=== PATIENT | female | born 1960 | race Caucasian/White ===

== ENCOUNTER 2016-10-26 04:54 | Emergency (ER) | payer OTHER ==
[~2016-10-26] VITALS: Ht 165.1 cm; Wt 73.5 kg
[~2016-10-26 04:54] MED LIST: ALPR0.25 PO; AMLO2.5T PO; CITA40TA12 PO; CRESTOR40 MG PO; DIPH25CA58 PO; ESTR0.62 PO; NADO40TA PO; RANI150T6 PO; SUMA50TA3 PO; ZOLP10TA4 PO
[2016-10-26 05:15] VITALS: BP 144/90
--- NOTE | 2016-10-26 05:19 | PHYS DOC ---
Past Medical History Past Medical History: Anxiety, Depression, GERD, High Cholesterol, Hypertension , Migraines, Other Additional Past Medical Histor: GI stricture Past Surgical History: Hysterectomy, Tubal ligation, Other Additional Past Surgical Histo: abd plasty, plastic- finger, skin graft Alcohol Use: Occasionally Drug Use: None Adult General Chief Complaint Chief Complaint: LOWEREXTREMITY INJURY HPI HPI Patient is a 56 year old female who presents to the ER today requesting a tetanus shot. Patient has an abrasion to her right upper thigh that occurred at her home. Patient has no other complaints. Patient's physical exam is consistent with a 6 cm superficial abrasion with surrounding bruising to her right upper outer thigh. There is no evidence of any cellulitis or infection. Assessment and plan 56-year-old female with a superficial abrasion to her right lower 70. Patient's tetanus is not up-to-date. Patient will be given at the [facility] be discharged. There is no evidence of cellulitis or infection. Patient has no further concerns Review of Systems Review of Systems Constitutional: Denies fever or chills [] Allergies Allergies Allergies Coded Allergies Type Severity Reaction Last Updated Verified cephalexin Allergy Intermediate blisters 01/18/14 Yes Physical Exam Physical Exam Constitutional: Well developed, well nourished, no acute distress, non-toxic appearance. [] HENT: Normocephalic, atraumatic, Skin: Warm, dry, no erythema, no rash. [] Extremities: Superficial abrasion with surrounding ecchymosis to her right upper outer thigh. EKG EKG [] Radiology/Procedures Radiology/Procedures [] Course & Med Decision Making Course & Med Decision Making Pertinent Labs and Imaging studies reviewed. (See chart for details) [] Dragon Disclaimer Dragon Disclaimer This electronic medical record was generated, in whole or in part, using a voice recognition dictation system. Departure Departure Impression: Primary Impression: Abrasion of leg, right Disposition: HOME, SELF-CARE Condition: STABLE Referrals: LORIE FRASER MD (PCP) Patient Instructions: Abrasion, Uzly-ow-Ywku, VIS, Tetanus, Diphtheria (Td); Tetanus, Diphtheria, Pertussis (Tdap) - [facility] [place] Problem Qualifiers Primary Impression: Abrasion of leg, right Encounter type: initial encounter Qualified Codes: S80.811A - Abrasion, right lower leg, initial encounter MINESH AGUILAR MD October 26, 2016 05:19
[2016-10-26] MEDS ORDERED: DIPHTH,PERTUSS(ACELL),TET TOX 0.5 ML DISP.SYRIN. VAX IM ONE (06:00)
== END 2016-10-26 05:40 | disposition home or self-care (01) ==
LOC: ER 04:54
DX: S80.811A Abrasion, right lower leg, initial encounter (principal); S70.311A Abrasion, right thigh, initial encounter; E78.00 Pure hypercholesterolemia, unspecified; K21.9 Gastro-esophageal reflux disease without esophagitis; I10 Essential (primary) hypertension; G43.909 Migraine, unspecified, not intractable, without status migrainosus; Z90.710 Acquired absence of both cervix and uterus; Z98.51 Tubal ligation status; Z98.890 Other specified postprocedural states; Z88.1 Allergy status to other antibiotic agents; X58.XXXA Exposure to other specified factors, initial encounter; Y93.89 Activity, other specified; Y99.8 Other external cause status; Y92.89 Other specified places as the place of occurrence of the external cause
CPT/HCPCS: 90471; 90715; 99283-25

== ENCOUNTER 2017-10-04 12:38 | Emergency (ER) | payer OTHER ==
[2017-10-04] MEDS ORDERED: ONDANSETRON PF 4 MG/2 ML VIAL. (13:30)
[2017-10-04] MEDS: IV NORMAL SALINE 1000ML BAG 1,000 ML IV (13:43)
[2017-10-04] MEDS: ONDANSETRON PF 4 MG/2 ML VIAL. IV (13:43)
[2017-10-04] MEDS: LOPERAMIDE 2 MG CAPSULE PO (13:45)
[2017-10-04 13:49] LABS: BASO # 0.1 x10^3/uL (0.0-0.2); BASO % 1 % (0-3); EOS % 0 % (0-3); HEMATOCRIT 43.2 % (36.0-47.0); HEMOGLOBIN 14.9 g/dL (12.0-15.5); LYMPH # 1.6 x10^3/uL (1.0-4.8); LYMPH % 10 % (24-48); MEAN CORPUSCULAR HEMOGLOBIN 31 pg (25-35); MEAN CORPUSCULAR HGB CONC 35 g/dL (31-37); MEAN CORPUSCULAR VOLUME 89 fL (79-100); MONO # 0.8 x10^3/uL (0.0-1.1); MONO % 5 % (0-9); NEUT % 85 % (31-73); PLATELET COUNT 330 x10^3/uL (140-400); RED BLOOD COUNT 4.85 x10^6/uL (3.50-5.40); RED CELL DISTRIBUTION WIDTH 12.6 % (11.5-14.5); WHITE BLOOD COUNT 16.5 x10^3/uL (4.0-11.0)
[2017-10-04 13:55] LABS: ADD MAN DIFF? YES
[2017-10-04 13:59] LABS: ANION GAP 12 (6-14); BLOOD UREA NITROGEN 15 mg/dL (7-20); BUN/CREATININE RATIO 19 (6-20); CALCIUM 8.9 mg/dL (8.5-10.1); CARBON DIOXIDE 24 mmol/L (21-32); CHLORIDE 103 mmol/L (98-107); CREATININE 0.8 mg/dL (0.6-1.0); GFR 73.9; GLUCOSE 148 mg/dL (70-99); POTASSIUM 3.6 mmol/L (3.5-5.1); SODIUM 139 mmol/L (136-145)
[2017-10-04 14:04] LABS: ALBUMIN 3.8 g/dL (3.4-5.0); ALBUMIN/GLOBULIN RATIO 0.8 (1.0-1.7); ALK PHOS 97 U/L (46-116); ALT (SGPT) 26 U/L (14-59); AST (SGOT) 20 U/L (15-37); TOTAL BILIRUBIN 0.6 mg/dL (0.2-1.0); TOTAL PROTEIN 8.5 g/dL (6.4-8.2)
[2017-10-04] MEDS: ACETAMINOPHEN 500 MG TABLET PO (14:31)
[2017-10-04 14:53] LABS: % LYMPHS 9 % (24-48); % MONOS 5 % (0-10); % SEGS 86 % (35-66)
[2017-10-04 14:55] LABS: PLT ESTIMATE ADEQUATE (ADEQUATE)
== END 2017-10-04 15:03 | disposition home or self-care (01) ==
LOC: ER 12:38
DX: K52.9 Noninfective gastroenteritis and colitis, unspecified (principal); E86.0 Dehydration; K21.9 Gastro-esophageal reflux disease without esophagitis; E78.00 Pure hypercholesterolemia, unspecified; I10 Essential (primary) hypertension; G43.909 Migraine, unspecified, not intractable, without status migrainosus; Z90.710 Acquired absence of both cervix and uterus; Z98.51 Tubal ligation status; Z88.1 Allergy status to other antibiotic agents; Z88.7 Allergy status to serum and vaccine
CPT/HCPCS: 36415; 80053; 85007; 85025; 93005; 96361; 96374; 99285-25; J2405; J7030

== ENCOUNTER 2018-06-15 03:18 | Observation (INO) | payer OTHER ==
[~2018-06-15] VITALS: Ht 162.6 cm; Wt 73.9 kg
[~2018-06-15 03:18] MED LIST changes: -AMLO2.5T PO; +AMLO2.5T3 PO; +CLON0.5T11 PO; +ESCITALOPRAM OX20 MG PO; +LOPE2TAB27 PO; +OMEP20CA9 PO; +ONDA4TAB10 SL; +RANI150T21 PO; -RANI150T6 PO
[2018-06-15 03:52] LABS: BASO # 0.1 x10^3/uL (0.0-0.2); BASO % 1 % (0-3); EOS # 0.2 x10^3/uL (0.0-0.7); EOS % 2 % (0-3); HEMATOCRIT 40.2 % (36.0-47.0); HEMOGLOBIN 13.9 g/dL (12.0-15.5); LYMPH # 3.2 x10^3/uL (1.0-4.8); LYMPH % 40 % (24-48); MEAN CORPUSCULAR HEMOGLOBIN 31 pg (25-35); MEAN CORPUSCULAR HGB CONC 35 g/dL (31-37); MEAN CORPUSCULAR VOLUME 90 fL (79-100); MONO # 0.5 x10^3/uL (0.0-1.1); MONO % 7 % (0-9); NEUT # 4.1 x10^3uL (1.8-7.7); NEUT % 51 % (31-73); PLATELET COUNT 329 x10^3/uL (140-400); RED BLOOD COUNT 4.47 x10^6/uL (3.50-5.40)
[2018-06-15 03:58] LABS: CALCIUM 9.1 mg/dL (8.5-10.1); CREATININE 0.7 mg/dL (0.6-1.0); GFR 86.2; POTASSIUM 4.2 mmol/L (3.5-5.1)
[2018-06-15] MEDS ORDERED: NITROGLYCERIN SUBLINGUAL 0.4 MG BOTTLE OF 25. SL PRN (04:00)
[2018-06-15 04:04] LABS: ALBUMIN 3.7 g/dL (3.4-5.0); ALBUMIN/GLOBULIN RATIO 0.9 (1.0-1.7); TOTAL BILIRUBIN 0.3 mg/dL (0.2-1.0); TOTAL PROTEIN 7.9 g/dL (6.4-8.2)
--- NOTE | 2018-06-15 04:11 | RAD ---
Chest AP portable at 0320: Reason for examination: Chest pain. Comparison is made to previous study dated 11/07/2015. The heart size is normal. Mediastinum is unremarkable. Lung daniel are clear. No acute bony abnormalities are seen. Impression: No acute cardiopulmonary disease. Electronically signed by: Pau Merida MD (06/15/2018 4:07 AM) [facility]
[2018-06-15] MEDS ORDERED: ASPIRIN CHEWABLE 81 MG TABLET. PO ONE (04:15)
--- NOTE | 2018-06-15 04:28 | PHYS DOC ---
Past Medical History Past Medical History: Anxiety, Depression, GERD, High Cholesterol, Hypertension , Migraines, Other Additional Past Medical Histor: GI stricture Past Surgical History: Hysterectomy, Tubal ligation, Other Additional Past Surgical Histo: abd plasty, finger, skin graft Alcohol Use: Occasionally Drug Use: None Adult General Chief Complaint Chief Complaint: CHEST PAIN HPI HPI Patient is a 57 year old f with cc of chest pain. prssure left side radiates to the left arm a/w sob. Had the pain at approximately 11 AM last morning while she was trying to go to sleep after mine shifter she went to sleep okay last couple of minutes she woke up she had a hard with her it was again chest pressure radiating to the arm she left the house she denies domestic violence she went to [facility] and was still feeling intermittent discomfort while walking. has hx of htn hld, family hx cad. last stress test 5 years ago Review of Systems Review of Systems Constitutional: Denies fever or chills [] Eyes: Denies change in visual acuity, redness, or eye pain [] HENT: Denies nasal congestion or sore throat [] Respiratory: Denies cough or shortness of breath [] Cardiovascular: No additional information not addressed in HPI [] GI: Denies abdominal pain, nausea, vomiting, bloody stools or diarrhea [] : Denies dysuria or hematuria [] Musculoskeletal: Denies back pain or joint pain [] Integument: Denies rash or skin lesions [] Neurologic: Denies headache, focal weakness or sensory changes [] Endocrine: Denies polyuria or polydipsia [] All other systems were reviewed and found to be within normal limits, except as documented in this note. Current Medications Current Medications Current Medications Medications (Trade) Dose Ordered Sig/[facility] Start Time Stop Time Status Last Admin Dose Admin Aspirin (Children'S Aspirin) 324 mg 1X ONCE 06/15/18 04:15 06/15/18 04:16 DC Nitroglycerin (Nitrostat) 0.4 mg PRN Q5MIN PRN 06/15/18 04:00 06/16/18 03:59 Allergies Allergies Allergies Coded Allergies Type Severity Reaction Last Updated Verified sumatriptan Allergy Severe chest pain 10/04/17 Yes tetanus and diphtheria toxoids Allergy Severe fever,cellulitis 10/04/17 Yes cephalexin Allergy Intermediate blisters 01/18/14 Yes Physical Exam Physical Exam Constitutional: Well developed, well nourished, no acute distress, non-toxic appearance. [] HENT: Normocephalic, atraumatic, bilateral external ears normal, oropharynx moist, no oral exudates, nose normal. [] Eyes: PERRLA, EOMI, conjunctiva normal, no discharge. [] Neck: Normal range of motion, no tenderness, supple, no stridor. [] Cardiovascular:Heart rate regular rhythm, no murmur [] Lungs & Thorax: Bilateral breath sounds clear to auscultation [] Abdomen: Bowel sounds normal, soft, no tenderness, no masses, no pulsatile masses. [] Skin: Warm, dry, no erythema, no rash. [] Back: No tenderness, no CVA tenderness. [] Extremities: No tenderness, no cyanosis, no clubbing, ROM intact, no edema. [] Neurologic: Alert and oriented X 3, normal motor function, normal sensory function, no focal deficits noted. [] Psychologic: Affect normal, judgement normal, mood normal. [] Current Patient Data Vital Signs Vital Signs Date Time Temp Pulse Resp B/P (MAP) Pulse Ox O2 Delivery O2 Flow Rate FiO2 06/15/18 03:20 98.0 69 18 165/94 (117) 98 Room Air 98.0 Lab Values Laboratory Tests Test 06/15/18 03:32 White Blood Count 8.0 x10^3/uL (4.0-11.0) Red Blood Count 4.47 x10^6/uL (3.50-5.40) Hemoglobin 13.9 g/dL (12.0-15.5) Hematocrit 40.2 % (36.0-47.0) Mean Corpuscular Volume 90 fL (79-100) Mean Corpuscular Hemoglobin 31 pg (25-35) Mean Corpuscular Hemoglobin Concent 35 g/dL (31-37) Red Cell Distribution Width 13.0 % (11.5-14.5) Platelet Count 329 x10^3/uL (140-400) Neutrophils (%) (Auto) 51 % (31-73) Lymphocytes (%) (Auto) 40 % (24-48) Monocytes (%) (Auto) 7 % (0-9) Eosinophils (%) (Auto) 2 % (0-3) Basophils (%) (Auto) 1 % (0-3) Neutrophils # (Auto) 4.1 x10^3uL (1.8-7.7) Lymphocytes # (Auto) 3.2 x10^3/uL (1.0-4.8) Monocytes # (Auto) 0.5 x10^3/uL (0.0-1.1) Eosinophils # (Auto) 0.2 x10^3/uL (0.0-0.7) Basophils # (Auto) 0.1 x10^3/uL (0.0-0.2) Sodium Level 142 mmol/L (136-145) Potassium Level 4.2 mmol/L (3.5-5.1) Chloride Level 105 mmol/L (98-107) Carbon Dioxide Level 28 mmol/L (21-32) Anion Gap 9 (6-14) Blood Urea Nitrogen 10 mg/dL (7-20) Creatinine 0.7 mg/dL (0.6-1.0) Estimated GFR (Cockcroft-Gault) 86.2 BUN/Creatinine Ratio 14 (6-20) Glucose Level 100 mg/dL (70-99) H Calcium Level 9.1 mg/dL (8.5-10.1) Total Bilirubin 0.3 mg/dL (0.2-1.0) Aspartate Amino Transferase (AST) 23 U/L (15-37) Alanine Aminotransferase (ALT) 29 U/L (14-59) Alkaline Phosphatase 98 U/L (46-116) Troponin I Quantitative < 0.017 ng/mL (0.000-0.055) Total Protein 7.9 g/dL (6.4-8.2) Albumin 3.7 g/dL (3.4-5.0) Albumin/Globulin Ratio 0.9 (1.0-1.7) L Laboratory Tests 06/15/18 03:32 Laboratory Tests 06/15/18 03:32 EKG EKG [] Interpretation Time: Normal sinus rhythm rate of 62 no acute ischemic changes noted interpreted by me time of encounter Radiology/Procedures Radiology/Procedures [] Impressions: cxr neg Course & Med Decision Making Course & Med Decision Making Pertinent Labs and Imaging studies reviewed. (See chart for details) []cp intermittent heart score is h 1 e 0 a 1 r 2 t 0 = 4 admit for risk stratification aspirin in ed admit to [facility] per usual local protocol no chest pain in er. doesnt sound like pe or dissection Sergio Disclaimer Dragon Disclaimer This electronic medical record was generated, in whole or in part, using a voice recognition dictation system. Departure Departure Impression: Primary Impression: Chest pain Disposition: 09 ADMITTED INPATIENT Admitting Physician: Umu Pruitt Condition: STABLE Referrals: LORIE FRASER MD (PCP) ADDISON WERNER MD Jun 15, 2018 04:28
[2018-06-15 05:25] VITALS: BP 138/104
[2018-06-15] MEDS ORDERED: DIPH25CA58 PO (06:07)
[2018-06-15] MEDS ORDERED: CHOL10003 PO (06:07)
[2018-06-15] MEDS ORDERED: FOLI200T13 PO (06:07)
[2018-06-15 07:00] VITALS: BP 156/89
--- NOTE | 2018-06-15 07:05 | EKG ---
[facility] [address] [place] [address] Test Date: 2018-06-15 Test Time: 03:25:15 Pat Name: ERIBERTO LANG Department: Room: Gender: F Physician Coder: : [id number] Requested By: ADDISON WERNER Order Number: [id number] Reading MD: Measurements Intervals [place] Rate: 62 P: 34 DC: 162 QRS: 30 QRSD: 66 T: 25 QT: 388 QTc: 396 Interpretive Statements SINUS RHYTHM NO SPECIFIC ECG ABNORMALITIES RI6.01 No previous ECG available for comparison
[2018-06-15 09:04] LABS: CHOLESTEROL/HDL RATIO 5.5
--- NOTE | 2018-06-15 10:25 | PDOC2 ---
LIZET ROMERO ONCOLOGY ACCOUNT SPECIALIST 06/15/18 1025: CARDIAC CONSULT DATE OF CONSULT Date of Consult DATE: 06/15/18 TIME: 10:11 REASON FOR CONSULT Reason for Consult: Chest pain REFERRING PHYSICIAN Referring Physician: Wei SOURCE Source: Chart review, Patient HISTORY OF PRESENT ILLNESS HISTORY OF PRESENT ILLNESS This is a pleasant 57 yo female admitted for complains of chest pain. She is an RN. Reports that this symptom started yesterday lasting 1-2 minutes at a time describing it as chest tightness. Also also with tingling to left arm and was intermittent. Presently no further symptoms. No recent falls or injury. No OROZCO nor exertional CP. No jaw pain. Reports that her GERD is controlled and no recent issues with dysphagia as she has hx of esophageal stricture with dilatation with last procedure 4 yrs ago. Also last stress test was 4 yrs ago and it was ok. No hx of CAD, VTE, or any arrhythmias. Although she has noticed some occasional palpitations. She has HTN, HLP but no DM2. PAST MEDICAL HISTORY Cardiovascular: HTN, Hyperlipidemia Pulmonary: No pertinent hx CENTRAL NERVOUS SYSTEM: Other (No pertinent history) GI: GERD, Other (esophageal stricture) Heme/Onc: No pertinent hx Hepatobiliary: No pertinent hx Psych: Anxiety Musculoskeletal: Osteoarthritis Rheumatologic: No pertinent hx Infectious disease: No pertinent hx ENT: No pertinent hx Renal/: No pertinent hx Endocrine: No pertinent hx Dermatology: No pertinent hx PAST SURGICAL HISTORY Past Surgical History: Tubal Ligation, Hysterectomy FAMILY HISTORY Family History noncontributory to CV SOCIAL HISTORY Smoke: No ALCOHOL: none Drugs: None Lives: with Family CURRENT MEDICATIONS CURRENT MEDICATIONS Current Medications Medications (Trade) Dose Ordered Sig/[facility] Route PRN Reason Start Time Stop Time Status Last Admin Dose Admin Aspirin (Children'S Aspirin) 324 mg 1X ONCE PO 06/15/18 04:15 06/15/18 04:16 DC 06/15/18 05:01 ALLERGIES ALLERGIES: Coded Allergies: sumatriptan (Verified Allergy, Severe, chest pain, 10/04/17) tetanus and diphtheria toxoids (Verified Allergy, Severe, fever,cellulitis , 10/04/17) cephalexin (Verified Allergy, Intermediate, blisters, 01/18/14) ROS Review of System 14 piint ROS evaluated with pertinent positives noted per HPI PHYSICAL EXAM General: Alert, Oriented X3, Cooperative, No acute distress HEENT: Atraumatic, Mucous membr. moist/pink Lungs: Clear to auscultation, Normal air movement Heart: Regular rate (SR), Normal S1, Normal S2, No murmurs Abdomen: Soft, No tenderness Extremities: No cyanosis, Normal pulses Skin: No breakdown, No significant lesion Neuro: Normal speech, Sensation intact Psych/Mental Status: Mental status NL, Mood NL MUSCULOSKELETAL: Osteoarthritic changes both hands VITALS VITALS Vital Signs Date Time Temp Pulse Resp B/P (MAP) Pulse Ox O2 Delivery O2 Flow Rate FiO2 06/15/18 08:00 Room Air 06/15/18 07:00 98.4 85 12 156/89 (111) 97 98.4 LABS Lab: Laboratory Tests Test 06/15/18 03:32 06/15/18 07:10 White Blood Count 8.0 x10^3/uL (4.0-11.0) Red Blood Count 4.47 x10^6/uL (3.50-5.40) Hemoglobin 13.9 g/dL (12.0-15.5) Hematocrit 40.2 % (36.0-47.0) Mean Corpuscular Volume 90 fL (79-100) Mean Corpuscular Hemoglobin 31 pg (25-35) Mean Corpuscular Hemoglobin Concent 35 g/dL (31-37) Red Cell Distribution Width 13.0 % (11.5-14.5) Platelet Count 329 x10^3/uL (140-400) Neutrophils (%) (Auto) 51 % (31-73) Lymphocytes (%) (Auto) 40 % (24-48) Monocytes (%) (Auto) 7 % (0-9) Eosinophils (%) (Auto) 2 % (0-3) Basophils (%) (Auto) 1 % (0-3) Neutrophils # (Auto) 4.1 x10^3uL (1.8-7.7) Lymphocytes # (Auto) 3.2 x10^3/uL (1.0-4.8) Monocytes # (Auto) 0.5 x10^3/uL (0.0-1.1) Eosinophils # (Auto) 0.2 x10^3/uL (0.0-0.7) Basophils # (Auto) 0.1 x10^3/uL (0.0-0.2) Sodium Level 142 mmol/L (136-145) Potassium Level 4.2 mmol/L (3.5-5.1) Chloride Level 105 mmol/L (98-107) Carbon Dioxide Level 28 mmol/L (21-32) Anion Gap 9 (6-14) Blood Urea Nitrogen 10 mg/dL (7-20) Creatinine 0.7 mg/dL (0.6-1.0) Estimated GFR (Cockcroft-Gault) 86.2 BUN/Creatinine Ratio 14 (6-20) Glucose Level 100 mg/dL (70-99) Calcium Level 9.1 mg/dL (8.5-10.1) Total Bilirubin 0.3 mg/dL (0.2-1.0) Aspartate Amino Transf (AST/SGOT) 23 U/L (15-37) Alanine Aminotransferase (ALT/SGPT) 29 U/L (14-59) Alkaline Phosphatase 98 U/L (46-116) Troponin I Quantitative < 0.017 ng/mL (0.000-0.055) < 0.017 ng/mL (0.000-0.055) Total Protein 7.9 g/dL (6.4-8.2) Albumin 3.7 g/dL (3.4-5.0) Albumin/Globulin Ratio 0.9 (1.0-1.7) Triglycerides Level 170 mg/dL (0-150) Cholesterol Level 236 mg/dL (0-200) LDL Cholesterol, Calculated 159 mg/dL (0-100) VLDL Cholesterol, Calculated 34 mg/dL (0-40) Non-HDL Cholesterol Calculated 193 mg/dL (0-129) HDL Cholesterol 43 mg/dL (40-60) Cholesterol/HDL Ratio 5.5 ASSESSMENT/PLAN ASSESSMENT/PLAN Atypical CP: possibly esophageal spasm vs tachyarrhythmia PSVT: x1 brief episode HTN: labile. HLP: uncontrolled despite high dose statin Post menopausal Hx of anxiety and migraine Recommendations 1. TTE today and if unremarkable then will plan for outpt stress test next week. 2. Outpt event monitor 3. Dietitian consult. 4. Increase norvasc. Daily home BP monitoring. 5. Continue high dose crestor. Will need diet modification and consideration for praluent or repatha. Likely familial issue may need future referral for lipodologist. ROLY ALAS MD 06/15/18 1837: CARDIAC CONSULT ASSESSMENT/PLAN ASSESSMENT/PLAN Pt. seen and examined Agree with above MOTORCYCLE REPAIRER note. Outpt stress testing and initiation of PCSK-9 inhibitors. Supportive care Discussed with patient and . LIZET ROMERO APRN Jun 15, 2018 10:25 ROLY ALAS MD Jun 15, 2018 18:37
[2018-06-15] MEDS ORDERED: amLODIPine BESYLATE 5 MG TABLET PO ONE (10:30)
[2018-06-15 11:30] VITALS: BP 147/82
--- NOTE | 2018-06-15 12:24 | CARD ---
MR#: [id number] Date of Study: 06/15/2018 Ordering Physician: LIZET ROMERO, Referring Physician: MARS SEE Tech: Donna Mcadams APPROVED REPORT EXAM: Two-dimensional and M-mode echocardiogram with Doppler and color Doppler. Other Information Quality : GoodHR: 64bpm INDICATION Chest Pain RISK FACTORS Hypertension Hyperlipidemia 2D DIMENSIONS RVDd2.3 (2.9-3.5cm)Left Atrium(2D)2.9 (1.6-4.0cm) IVSd1.0 (0.7-1.1cm)Aortic Root(2D)2.5 (2.0-3.7cm) LVDd4.1 (3.9-5.9cm)LVOT Diameter1.8 (1.8-2.4cm) PWd0.9 (0.7-1.1cm)LVDs2.0 (2.5-4.0cm) FS (%) 50.1 %SV59.2 ml LVEF(%)81.9 (>50%) Aortic Valve AoV Peak Abdi.175.6cm/sAoV VTI36.2cm AO Peak GR.12.3mmHgLVOT Peak Abdi.94.3cm/s LVOT VTI 21.42cmAO Mean GR.7mmHg VAISHALI (VMAX)1.81qe4WKK (VTI)1.58cm2 Mitral Valve MV E Byfrohao82.8cm/sMV DECEL [id number] MV A Kjeygbip14.2cm/sMV GOS08ts E/A Ratio0.9MVA (PHT)3.39cm2 TDI E/Lateral E'8.8E/Medial E'10.0 Pulmonary Valve PV Peak Idfbvfdl975.4cm/sPV Peak Grad.5mmHg Tricuspid Valve TR P. Yvrvphwi128ch/sRAP USUYJXLN2hoMt TR Peak Gr.20rlYwCVYP50lgZr Pulmonary Vein S1 Awtjkzbh07.4cm/sD2 Xxlenrse96.3cm/s PVa dehijndv825kbsa LEFT VENTRICLE The left ventricle is normal size. There is normal left ventricular wall thickness. The left ventricu lar systolic function is normal and the ejection fraction is within normal range. The Ejection Fracti on is 50-55%. There is normal LV segmental wall motion. Transmitral Doppler flow pattern is Grade II- pseudonormal filling dynamics. RIGHT VENTRICLE The right ventricle is normal size. There is normal right ventricular wall thickness. The right ventr icular systolic function is normal. ATRIA The left atrium size is normal. The right atrium size is normal. The interatrial septum is intact wit h no evidence for an atrial septal defect or patent foramen ovale as noted on 2-D or Doppler imaging. AORTIC VALVE The aortic valve is normal in structure and function. Doppler and Color Flow revealed no significant aortic regurgitation. There is no significant aortic valvular stenosis. MITRAL VALVE The mitral valve is normal in structure and function. There is no mitral valve stenosis. Doppler and Color Flow revealed no mitral valve regurgitation noted. TRICUSPID VALVE The tricuspid valve is normal in structure and function. Doppler and Color Flow revealed trace tricus pid regurgitation. There is no tricuspid valve stenosis. PULMONIC VALVE The pulmonic valve is not well visualized. Doppler and Color Flow revealed trace pulmonic valvular re gurgitation. There is no pulmonic valvular stenosis. GREAT VESSELS The aortic root is normal in size. Normal pulmonary venous flow (Doppler). The IVC is normal in size and collapses >50% with inspiration. PERICARDIAL EFFUSION There is no evidence of significant pericardial effusion. Critical Notification Critical Value: No <Conclusion> The left ventricular systolic function is normal and the ejection fraction is within normal range. Th e Ejection Fraction is 50-55%. There is normal LV segmental wall motion. Signed by : Sreekanth Alfonso, Electronically Approved : 06/15/2018 12:23:09
[2018-06-15] MEDS ORDERED: clonazePAM 0.5 MG TABLET PO PRN (12:45)
[2018-06-15] MEDS ORDERED: diphenhydrAMINE HCL 25 MG CAPSULE PO PRN (12:45)
[2018-06-15] MEDS ORDERED: CHOLECALCIFEROL (VITAMIN D3) 1,000 UNIT TABLET PO SCH (13:00)
[2018-06-15] MEDS ORDERED: CITALOPRAM 20 MG TABLET. PO SCH (13:00)
[2018-06-15] MEDS ORDERED: ZOLPIDEM 5 MG TABLET. PO PRN (13:00)
[2018-06-15] MEDS ORDERED: MULTIVITAMIN with MINERAL TABLET. PO SCH (13:00)
--- NOTE | 2018-06-15 13:27 | PDOC1 ---
History and Physical Date of Admission Date of Admission 06/15/18 Identification/Chief Complaint Chief Complaint chest pain Source Source: Chart review, Patient History of Present Illness History of Present Illness HPI Patient is a 57 year old f with cc of chest pain. prssure left side radiates to the left arm a/w sob. 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 ce neg. ekg ok. Past Medical History Cardiovascular: HTN, Hyperlipidemia Pulmonary: No pertinent hx CENTRAL NERVOUS SYSTEM: Migraine GI: GERD Heme/Onc: No pertinent hx Hepatobiliary: No pertinent hx Psych: Anxiety Infectious disease: No pertinent hx Renal/: No pertinent hx Endocrine: No pertinent hx Past Surgical History Past Surgical History: Tubal Ligation, Hysterectomy Family History Family History: Cancer, Heart Disease Family History: Parent Social History Smoke: No ALCOHOL: occassional Drugs: None, Other Current Problem List Problem List Problems Medical Problems: (1) Chest pain Status: Acute Current Medications Current Medications Current Medications Medications (Trade) Dose Ordered Sig/Topher Start Time Stop Time Status Last Admin Dose Admin Amlodipine Besylate (Norvasc) 5 mg 1X ONCE 06/15/18 10:30 06/15/18 10:31 DC 06/15/18 11:25 5 MG Aspirin (Children'S Aspirin) 324 mg 1X ONCE 06/15/18 04:15 06/15/18 04:16 DC 06/15/18 05:01 324 MG Atorvastatin Calcium (Lipitor) 80 mg QHS 06/15/18 21:00 Citalopram Hydrobromide (CeleXA) 40 mg DAILY 06/15/18 13:00 06/15/18 13:03 40 MG Clonazepam (KlonoPIN) 0.5 mg PRN BID PRN 06/15/18 12:45 Diphenhydramine HCl (Benadryl) 25 mg PRN Q6HRS PRN 06/15/18 12:45 Multivitamins (Thera M Plus) 1 tab DAILY 06/15/18 13:00 06/15/18 13:02 1 TAB Nitroglycerin (Nitrostat) 0.4 mg PRN Q5MIN PRN 06/15/18 04:00 06/16/18 03:59 Pantoprazole Sodium (Protonix) 40 mg DAILYAC 06/15/18 16:30 Vitamin D (Vitamin D3) 3,000 unit DAILY 06/15/18 13:00 06/15/18 13:03 3,000 UNIT Zolpidem Tartrate (Ambien) 5 mg PRN QHS PRN 06/15/18 13:00 Allergies Allergies Allergies Coded Allergies Type Severity Reaction Last Updated Verified sumatriptan Allergy Severe chest pain 10/04/17 Yes tetanus and diphtheria toxoids Allergy Severe fever,cellulitis 10/04/17 Yes cephalexin Allergy Intermediate blisters 01/18/14 Yes ROS Review of System CONSTITUTIONAL: No fever or chills EYES: No recent changes SKIN: No rash or itching CARDIOVASCULAR: No chest pain, syncope, palpitations, or edema RESPIRATORY: No SOB or cough GASTROINTESTINAL: No nausea, vomiting or abdominal pain NEUROLOGICAL: No headaches or weakness ENDOCRINE: No cold or heat intolerance GENITOURINARY: No urgency or frequency of urination MUSCULOSKELETAL: No back pain or joint pain LYMPHATICS: No enlarged lymph nodes PSYCHIATRIC: No anxiety or depression Physical Exam Physical Exam GEN.: No apparent distress. Alert and oriented. HEENT: Head is normocephalic, atraumatic NECK: Supple. LUNGS: Clear to auscultation. HEART: RRR, S1, S2 present. Peripheral pulses intact ABDOMEN: Soft, nontender. Positive bowel sounds. EXTREMITIES: Without any cyanosis. NEUROLOGIC: Normal speech, normal tone PSYCHIATRIC: Normal affect, normal mood. SKIN: No ulcerations Vitals Vitals Vital Signs Date Time Temp Pulse Resp B/P (MAP) Pulse Ox O2 Delivery O2 Flow Rate FiO2 06/15/18 11:25 85 156/89 06/15/18 08:00 Room Air 06/15/18 07:00 98.4 12 97 98.4 Labs Labs Laboratory Tests Test 06/15/18 03:32 06/15/18 07:10 06/15/18 10:00 White Blood Count 8.0 x10^3/uL (4.0-11.0) Red Blood Count 4.47 x10^6/uL (3.50-5.40) Hemoglobin 13.9 g/dL (12.0-15.5) Hematocrit 40.2 % (36.0-47.0) Mean Corpuscular Volume 90 fL (79-100) Mean Corpuscular Hemoglobin 31 pg (25-35) Mean Corpuscular Hemoglobin Concent 35 g/dL (31-37) Red Cell Distribution Width 13.0 % (11.5-14.5) Platelet Count 329 x10^3/uL (140-400) Neutrophils (%) (Auto) 51 % (31-73) Lymphocytes (%) (Auto) 40 % (24-48) Monocytes (%) (Auto) 7 % (0-9) Eosinophils (%) (Auto) 2 % (0-3) Basophils (%) (Auto) 1 % (0-3) Neutrophils # (Auto) 4.1 x10^3uL (1.8-7.7) Lymphocytes # (Auto) 3.2 x10^3/uL (1.0-4.8) Monocytes # (Auto) 0.5 x10^3/uL (0.0-1.1) Eosinophils # (Auto) 0.2 x10^3/uL (0.0-0.7) Basophils # (Auto) 0.1 x10^3/uL (0.0-0.2) Sodium Level 142 mmol/L (136-145) Potassium Level 4.2 mmol/L (3.5-5.1) Chloride Level 105 mmol/L (98-107) Carbon Dioxide Level 28 mmol/L (21-32) Anion Gap 9 (6-14) Blood Urea Nitrogen 10 mg/dL (7-20) Creatinine 0.7 mg/dL (0.6-1.0) Estimated GFR (Cockcroft-Gault) 86.2 BUN/Creatinine Ratio 14 (6-20) Glucose Level 100 mg/dL (70-99) Calcium Level 9.1 mg/dL (8.5-10.1) Total Bilirubin 0.3 mg/dL (0.2-1.0) Aspartate Amino Transf (AST/SGOT) 23 U/L (15-37) Alanine Aminotransferase (ALT/SGPT) 29 U/L (14-59) Alkaline Phosphatase 98 U/L (46-116) Troponin I Quantitative < 0.017 ng/mL (0.000-0.055) < 0.017 ng/mL (0.000-0.055) < 0.017 ng/mL (0.000-0.055) Total Protein 7.9 g/dL (6.4-8.2) Albumin 3.7 g/dL (3.4-5.0) Albumin/Globulin Ratio 0.9 (1.0-1.7) Triglycerides Level 170 mg/dL (0-150) Cholesterol Level 236 mg/dL (0-200) LDL Cholesterol, Calculated 159 mg/dL (0-100) VLDL Cholesterol, Calculated 34 mg/dL (0-40) Non-HDL Cholesterol Calculated 193 mg/dL (0-129) HDL Cholesterol 43 mg/dL (40-60) Cholesterol/HDL Ratio 5.5 Laboratory Tests Test 06/15/18 03:32 06/15/18 07:10 06/15/18 10:00 White Blood Count 8.0 x10^3/uL (4.0-11.0) Red Blood Count 4.47 x10^6/uL (3.50-5.40) Hemoglobin 13.9 g/dL (12.0-15.5) Hematocrit 40.2 % (36.0-47.0) Mean Corpuscular Volume 90 fL (79-100) Mean Corpuscular Hemoglobin 31 pg (25-35) Mean Corpuscular Hemoglobin Concent 35 g/dL (31-37) Red Cell Distribution Width 13.0 % (11.5-14.5) Platelet Count 329 x10^3/uL (140-400) Neutrophils (%) (Auto) 51 % (31-73) Lymphocytes (%) (Auto) 40 % (24-48) Monocytes (%) (Auto) 7 % (0-9) Eosinophils (%) (Auto) 2 % (0-3) Basophils (%) (Auto) 1 % (0-3) Neutrophils # (Auto) 4.1 x10^3uL (1.8-7.7) Lymphocytes # (Auto) 3.2 x10^3/uL (1.0-4.8) Monocytes # (Auto) 0.5 x10^3/uL (0.0-1.1) Eosinophils # (Auto) 0.2 x10^3/uL (0.0-0.7) Basophils # (Auto) 0.1 x10^3/uL (0.0-0.2) Sodium Level 142 mmol/L (136-145) Potassium Level 4.2 mmol/L (3.5-5.1) Chloride Level 105 mmol/L (98-107) Carbon Dioxide Level 28 mmol/L (21-32) Anion Gap 9 (6-14) Blood Urea Nitrogen 10 mg/dL (7-20) Creatinine 0.7 mg/dL (0.6-1.0) Estimated GFR (Cockcroft-Gault) 86.2 BUN/Creatinine Ratio 14 (6-20) Glucose Level 100 mg/dL (70-99) Calcium Level 9.1 mg/dL (8.5-10.1) Total Bilirubin 0.3 mg/dL (0.2-1.0) Aspartate Amino Transf (AST/SGOT) 23 U/L (15-37) Alanine Aminotransferase (ALT/SGPT) 29 U/L (14-59) Alkaline Phosphatase 98 U/L (46-116) Troponin I Quantitative < 0.017 ng/mL (0.000-0.055) < 0.017 ng/mL (0.000-0.055) < 0.017 ng/mL (0.000-0.055) Total Protein 7.9 g/dL (6.4-8.2) Albumin 3.7 g/dL (3.4-5.0) Albumin/Globulin Ratio 0.9 (1.0-1.7) Triglycerides Level 170 mg/dL (0-150) Cholesterol Level 236 mg/dL (0-200) LDL Cholesterol, Calculated 159 mg/dL (0-100) VLDL Cholesterol, Calculated 34 mg/dL (0-40) Non-HDL Cholesterol Calculated 193 mg/dL (0-129) HDL Cholesterol 43 mg/dL (40-60) Cholesterol/HDL Ratio 5.5 VTE Prophylaxis Ordered VTE Prophylaxis Devices: Yes VTE Pharmacological Prophylaxi: Yes Assessment/Plan Assessment/Plan chest pain, atypical htn hld gerd depression plan: echo ok fu with card. dvt ppx dc SOFIE Jon MD Jun 15, 2018 13:27
[2018-06-15] MEDS ORDERED: MORPHINE SULFATE 4 MG/ML VIAL. IV PRN (13:30)
[2018-06-15] MEDS ORDERED: traMADol 50 MG TABLET PO PRN (13:30)
[2018-06-15] MEDS ORDERED: ACETAMINOPHEN 325 MG TABLET. PO PRN (13:30)
[2018-06-15] MEDS ORDERED: ONDANSETRON PF 4 MG/2 ML VIAL. IV PRN (13:30)
[2018-06-15] MEDS ORDERED: DOCUSATE SODIUM 100 MG CAPSULE. PO PRN (13:30)
[2018-06-15] MEDS ORDERED: hydrALAZINE 20 MG/ML VIAL. IVP PRN (13:30)
--- NOTE | 2018-06-15 14:07 | NUR ---
SS following for discharge planning. SS reviewed pt chart and met with pt's RN. Pt is from home and currently on room air. Pt's RN reported no needs at this time. Pt's RN reported that discharge is pending ECHO results at this time. SS will continue to follow for pending needs.
[2018-06-15 15:00] VITALS: BP 145/66
[2018-06-15] MEDS ORDERED: ENOXAPARIN 40 MG/0.4 ML SYRINGE. SQ SCH (15:00)
[2018-06-15] MEDS ORDERED: ATOR40TA59 PO (16:13)
[2018-06-15] MEDS ORDERED: AMLO5TAB7 PO (16:13)
--- NOTE | 2018-06-15 16:14 | PDOC3 ---
Discharge Summary [facility] Date of Admission: Jun 15, 2018 Discharge Date: Jun 15, 2018 Admitting Diagnosis chest pain, atypical htn hld gerd depression Final Diagnosis CONSULTS card Brief Hospital Course Patient is a 57 year old f with cc of chest pain. prssure left side radiates to the left arm a/w sob. 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 ce neg. ekg ok. echo ok. possible 2/2 anxiety. dc home with holter monitor as per card. increase amlodipine to 5mg daily, lipitor to 80mg daily. dc time 35min Patient History: Asthma G8 SON FH: alcohol abuse 33 FATHER FH: hypercholesterolemia G8 SISTER FH: lung cancer 32 MOTHER Family history: Depression (situation) G8 SON G8 SON G8 SON Family history: Hypertension (situation) 32 MOTHER Family history: Suicide (situation) G8 BROTHER G8 SON Graves' disease Disposition chest pain, atypical, could 2/2 anxiety htn hld gerd depression CONDITION AT DISCHARGE: Improved, Stable Scheduled Amlodipine Besylate (Amlodipine Besylate), 5 MG PO DAILY Atorvastatin Calcium (Atorvastatin Calcium), 80 MG PO QHS Cholecalciferol (Vitamin D3) (Vitamin D3), 3 TAB PO DAILY, (Reported) Escitalopram Oxalate (Escitalopram Oxalate), 1 TAB PO DAILY, (Reported) Folic Acid/Multivit-Minerals (Women's Multivitamin Gummies), 200 MCG PO DAILY, ( Reported) Omeprazole (Omeprazole), 1 CAP PO DAILY, (Reported) Scheduled PRN Clonazepam (Clonazepam), 1 TAB PO BID PRN for ANXIETY / AGITATION, (Reported) Diphenhydramine Hcl (Benadryl), 1 CAP PO PRN Q4-6HRS PRN for INSOMNIA, (Reported ) Zolpidem Tartrate (Zolpidem Tartrate), 10 MG PO PRN QHS PRN for INSOMNIA, ( Reported) Discontinued Medications Amlodipine Besylate (Amlodipine Besylate), 1 TAB PO DAILY, (Reported) Rosuvastatin Calcium (Crestor), 40 MG PO QHS, (Reported) SOFIE RUIZ MD Jun 15, 2018 16:14
[2018-06-15] MEDS ORDERED: PANTOPRAZOLE 40 MG TABLET.DR. PO SCH (16:30)
--- NOTE | 2018-06-15 18:02 | NUR ---
Discharge Note: [facility] Discharge instructions and discharge home medications reviewed with Patient and a copy given. All questions have been answered and understanding verbalized. The following instructions and handouts were given: Cardiac event monitor Discontinued IV line Patient discharged to home with self care via personal vehicle
[2018-06-15] MEDS ORDERED: ATORVASTATIN CALCIUM 40 MG TABLET. PO SCH (21:00)
[2018-06-16] MEDS ORDERED: amLODIPine BESYLATE 5 MG TABLET PO SCH (09:00)
== END 2018-06-15 18:05 | disposition home or self-care (01) ==
LOC: ER 03:18 → 2 SOUTH 04:00
PROVIDERS: ADMIT Internal Medicine; ATTEND Internal Medicine
DX: R07.89 Other chest pain (principal); I10 Essential (primary) hypertension; E78.5 Hyperlipidemia, unspecified; K21.9 Gastro-esophageal reflux disease without esophagitis; F32.9 Major depressive disorder, single episode, unspecified; J45.909 Unspecified asthma, uncomplicated; Z90.710 Acquired absence of both cervix and uterus; Z82.49 Family history of ischemic heart disease and other diseases of the circulatory system; Z81.8 Family history of other mental and behavioral disorders
CPT/HCPCS: 36415; 71045; 80053; 80061; 84484; 85025; 93005; 93306; 99284; G0378; G0379

== ENCOUNTER 2018-10-13 20:23 | Emergency (ER) | payer OTHER ==
[~2018-10-13] VITALS: Ht 162.6 cm; Wt 73.5 kg
[~2018-10-13 20:23] MED LIST changes: -AMLO2.5T3 PO; +AMLO2.5T5 PO; +AMLO5TAB10 PO; +ATOR40TA59 PO; +CHOL10003 PO; +FOLI200T13 PO; +OMEP20CA10 PO; -OMEP20CA9 PO; +RANI-376 PO; -RANI150T21 PO
[2018-10-13] MEDS ORDERED: IV NORMAL SALINE 1000ML BAG 1,000 ML IV ONE (21:00)
[2018-10-13 21:01] LABS: BASO # 0.1 x10^3/uL (0.0-0.2); BASO % 1 % (0-3); EOS # 0.2 x10^3/uL (0.0-0.7); EOS % 2 % (0-3); HEMATOCRIT 38.9 % (36.0-47.0); HEMOGLOBIN 13.2 g/dL (12.0-15.5); LYMPH # 3.1 x10^3/uL (1.0-4.8); LYMPH % 39 % (24-48); MEAN CORPUSCULAR HEMOGLOBIN 31 pg (25-35); MEAN CORPUSCULAR HGB CONC 34 g/dL (31-37); MEAN CORPUSCULAR VOLUME 90 fL (79-100); MONO # 0.5 x10^3/uL (0.0-1.1); MONO % 6 % (0-9); NEUT # 4.1 x10^3uL (1.8-7.7); NEUT % 52 % (31-73); PLATELET COUNT 278 x10^3/uL (140-400); RED BLOOD COUNT 4.33 x10^6/uL (3.50-5.40); RED CELL DISTRIBUTION WIDTH 12.7 % (11.5-14.5); WHITE BLOOD COUNT 7.9 x10^3/uL (4.0-11.0)
[2018-10-13 21:17] LABS: CALCIUM 8.8 mg/dL (8.5-10.1); CREATININE 0.7 mg/dL (0.6-1.0); GFR 85.9; POTASSIUM 3.2 mmol/L (3.5-5.1)
[2018-10-13 21:22] LABS: ALBUMIN 3.5 g/dL (3.4-5.0); ALBUMIN/GLOBULIN RATIO 0.9 (1.0-1.7); TOTAL BILIRUBIN 0.3 mg/dL (0.2-1.0); TOTAL PROTEIN 7.4 g/dL (6.4-8.2)
[2018-10-13 22:16] LABS: BILIRUBIN,URINE NEGATIVE (NEG); CLARITY,URINE CLEAR; COLOR,URINE YELLOW; NITRITE,URINE NEGATIVE (NEG); PROTEIN,URINE NEGATIVE (NEG-TRACE); UROBILINOGEN,URINE 0.2 mg/dL (0.2 mg/dL)
[2018-10-13 22:27] LABS: BACTERIA,URINE FEW /HPF (0-FEW); HYALINE CASTS, URINE MODERATE /HPF; RBC,URINE 0 /HPF (0-2); SQUAMOUS EPITHELIAL CELL,UR FEW /LPF; WBC,URINE OCC /HPF (0-4)
[2018-10-13] MEDS ORDERED: POTASSIUM CHLORIDE 20 MEQ/15 ML ORAL LIQUID. PO ONE (22:45)
[2018-10-13 22:50] VITALS: BP 119/62
--- NOTE | 2018-10-14 02:20 | PHYS DOC ---
Past Medical History Past Medical History: Anxiety, Depression, GERD, High Cholesterol, Hypertension, Migraines, Other Additional Past Medical Histor: GI stricture Past Surgical History: Hysterectomy, Tubal ligation, Other Additional Past Surgical Histo: abd plasty, finger, skin graft Alcohol Use: Occasionally Drug Use: None Adult General Chief Complaint Chief Complaint: NEAR SYNCOPE HPI HPI Patient is a 58 year old female was brought in by [place] with a chief complaint of lightheadedness near syncope. Apparently she was at a [employer] type restaurant she had spicy food she had half a Melisa she went to the bathroom she had diarrhea when she came out she was very lightheaded she did not pass out all the way but she felt pretty weak she was sweaty really had no chest pain. With paramedics she was orthostatic heart rate went up about 30 beats from sitting to standing did not get hypotensive. Currently she feels much better overall while at rest. She does report that during drinking the cold Melisa she had some sort of esophageal spasm-type pain which she has had before but that went away Review of Systems Review of Systems Constitutional: Denies fever or chills [] Eyes: Denies change in visual acuity, redness, or eye pain [] HENT: Denies nasal congestion or sore throat [] Respiratory: Denies cough or shortness of breath [] Cardiovascular: No additional information not addressed in HPI [] Musculoskeletal: Denies back pain or joint pain [] Integument: Denies rash or skin lesions [] Neurologic: Denies headache, focal weakness or sensory changes [] Endocrine: Denies polyuria or polydipsia [] All other systems were reviewed and found to be within normal limits, except as documented in this note. Current Medications Current Medications Current Medications Medications (Trade) Dose Ordered Sig/Topher Start Time Stop Time Status Last Admin Dose Admin Potassium Chloride (KCl Oral Soln) 40 meq 1X ONCE 10/13/18 22:45 10/13/18 22:46 DC 10/13/18 22:50 40 MEQ Sodium Chloride 1,000 ml @ 1,000 mls/hr 1X ONCE 10/13/18 21:00 10/13/18 21:59 DC 10/13/18 20:58 1,000 MLS/HR Allergies Allergies Allergies Coded Allergies Type Severity Reaction Last Updated Verified sumatriptan Allergy Severe chest pain 10/04/17 Yes tetanus and diphtheria toxoids Allergy Severe fever,cellulitis 10/04/17 Yes cephalexin Allergy Intermediate blisters 01/18/14 Yes Physical Exam Physical Exam Constitutional: Well developed, well nourished, no acute distress, non-toxic appearance. [] HENT: Normocephalic, atraumatic, bilateral external ears normal, oropharynx moist, no oral exudates, nose normal. [] Eyes: PERRLA, EOMI, conjunctiva normal, no discharge. [] Neck: Normal range of motion, no tenderness, supple, no stridor. [] Cardiovascular:Heart rate regular rhythm, no murmur [] Lungs & Thorax: Bilateral breath sounds clear to auscultation [] Abdomen: Bowel sounds normal, soft, no tenderness, no masses, no pulsatile ma sses. [] Skin: Warm, dry, no erythema, no rash. [] Back: No tenderness, no CVA tenderness. [] Extremities: No tenderness, no cyanosis, no clubbing, ROM intact, no edema. [] Neurologic: Alert and oriented X 3, normal motor function, normal sensory function, no focal deficits noted. [] Psychologic: Affect normal, judgement normal, mood normal. [] Current Patient Data Vital Signs Vital Signs Date Time Temp Pulse Resp B/P (MAP) Pulse Ox O2 Delivery O2 Flow Rate FiO2 10/13/18 22:50 78 23 97 10/13/18 20:30 98.2 103/57 (72) Room Air 98.2 Lab Values Laboratory Tests Test 10/13/18 20:35 10/13/18 22:07 White Blood Count 7.9 x10^3/uL (4.0-11.0) Red Blood Count 4.33 x10^6/uL (3.50-5.40) Hemoglobin 13.2 g/dL (12.0-15.5) Hematocrit 38.9 % (36.0-47.0) Mean Corpuscular Volume 90 fL (79-100) Mean Corpuscular Hemoglobin 31 pg (25-35) Mean Corpuscular Hemoglobin Concent 34 g/dL (31-37) Red Cell Distribution Width 12.7 % (11.5-14.5) Platelet Count 278 x10^3/uL (140-400) Neutrophils (%) (Auto) 52 % (31-73) Lymphocytes (%) (Auto) 39 % (24-48) Monocytes (%) (Auto) 6 % (0-9) Eosinophils (%) (Auto) 2 % (0-3) Basophils (%) (Auto) 1 % (0-3) Neutrophils # (Auto) 4.1 x10^3uL (1.8-7.7) Lymphocytes # (Auto) 3.1 x10^3/uL (1.0-4.8) Monocytes # (Auto) 0.5 x10^3/uL (0.0-1.1) Eosinophils # (Auto) 0.2 x10^3/uL (0.0-0.7) Basophils # (Auto) 0.1 x10^3/uL (0.0-0.2) Sodium Level 139 mmol/L (136-145) Potassium Level 3.2 mmol/L (3.5-5.1) L Chloride Level 101 mmol/L (98-107) Carbon Dioxide Level 26 mmol/L (21-32) Anion Gap 12 (6-14) Blood Urea Nitrogen 11 mg/dL (7-20) Creatinine 0.7 mg/dL (0.6-1.0) Estimated GFR (Cockcroft-Gault) 85.9 BUN/Creatinine Ratio 16 (6-20) Glucose Level 149 mg/dL (70-99) H Calcium Level 8.8 mg/dL (8.5-10.1) Total Bilirubin 0.3 mg/dL (0.2-1.0) Aspartate Amino Transferase (AST) 23 U/L (15-37) Alanine Aminotransferase (ALT) 25 U/L (14-59) Alkaline Phosphatase 90 U/L (46-116) Troponin I Quantitative < 0.017 ng/mL (0.000-0.055) Total Protein 7.4 g/dL (6.4-8.2) Albumin 3.5 g/dL (3.4-5.0) Albumin/Globulin Ratio 0.9 (1.0-1.7) L Ethyl Alcohol Level < 10 mg/dL (0-10) Urine Collection Type Void Urine Color Yellow Urine Clarity Clear Urine pH 6.0 Urine Specific [place] 1.015 Urine Protein Negative mg/dL (NEG-TRACE) Urine Glucose (UA) Negative mg/dL (NEG) Urine Ketones (Stick) Negative mg/dL (NEG) Urine Blood Negative (NEG) Urine Nitrite Negative (NEG) Urine Bilirubin Negative (NEG) Urine Urobilinogen Dipstick 0.2 mg/dL (0.2 mg/dL) Urine Leukocyte Esterase Small (NEG) Urine RBC 0 /HPF (0-2) Urine WBC Occ /HPF (0-4) Urine Squamous Epithelial Cells Few /LPF Urine Bacteria Few /HPF (0-FEW) Urine Hyaline Casts Moderate /HPF Urine Mucus Marked /LPF Laboratory Tests 10/13/18 20:35 Laboratory Tests 10/13/18 20:35 EKG EKG []EKG shows a normal sinus rhythm nonspecific ST flattening diffusely no acute ischemia QTC 434 Radiology/Procedures Radiology/Procedures [] Course & Med Decision Making Course & Med Decision Making Pertinent Labs and Imaging studies reviewed. (See chart for details) []Anxiety hypertension 58-year-old female presenting with chief complaint of near-syncope apparently had some orthostasis with the paramedics patient was given IV fluids in the emergency room with resolution of her symptoms she felt fine vitals are normal lab workup is essentially unremarkable mild hypokalemia only patient was reassured likely a component of vasovagal orthostatic type symptoms do not have actual syncope. I think she is safe for discharge at this time. Dragon Disclaimer Dragon Disclaimer This electronic medical record was generated, in whole or in part, using a voice recognition dictation system. Departure Departure Impression: Primary Impression: Near syncope Disposition: 01 HOME, SELF-CARE Condition: STABLE Referrals: LORIE FRASER MD (PCP) Patient Instructions: Dizziness, [id number] ADDISON WERNER MD October 14, 2018 02:20
--- NOTE | 2018-10-14 08:18 | EKG ---
[facility] [address] [place] [address] Test Date: 2018-10-13 Test Time: 20:32:09 Pat Name: ERIBERTO LANG Department: Room: Gender: F Bell Maker: : [id number] Requested By: ADIDSON WERNER Order Number: [id number] Reading MD: Sreekanth Alfonso MD Measurements Intervals [place] Rate: 68 P: 34 GA: 164 QRS: 38 QRSD: 68 T: 31 QT: 404 QTc: 434 Interpretive Statements SINUS RHYTHM Electronically Signed On 10-17-2018 14:06:02 CDT by Sreekanth Alfonso MD
== END 2018-10-13 23:01 | disposition home or self-care (01) ==
LOC: ER 20:23
DX: R55 Syncope and collapse (principal); R19.7 Diarrhea, unspecified; K21.9 Gastro-esophageal reflux disease without esophagitis; E78.00 Pure hypercholesterolemia, unspecified; I10 Essential (primary) hypertension; G43.909 Migraine, unspecified, not intractable, without status migrainosus; F32.9 Major depressive disorder, single episode, unspecified; F41.9 Anxiety disorder, unspecified; Z88.1 Allergy status to other antibiotic agents; Z88.8 Allergy status to other drugs, medicaments and biological substances; Z88.7 Allergy status to serum and vaccine
CPT/HCPCS: 36415; 80053; 81001; 84484; 85025; 87086; 93005; 96360; 96361; 99285; G0480; J7030

== ENCOUNTER → 2018-11-21 | Outpatient (CLI) | payer OTHER ==
--- NOTE | 2018-11-21 09:55 | KCIC ---
BILATERAL DIAGNOSTIC MAMMOGRAPHY AND RIGHT BREAST ULTRASOUND History: Indistinct area of more dense tissue in the right upper outer quadrant/axilla without a dominant nodule. Comparison: Bilateral mammogram July 10, 2013. Technique: Bilateral digital mammogram views were obtained. Findings: Breast Tissue Density A : The breasts are almost entirely fatty. There are no dominant masses, suspicious microcalcifications or architectural distortion. Real-time ultrasound imaging in the upper outer right breast at area of concern is performed. The area is 12 cm from the nipple. No mass or architectural distortion or abnormal lymph node is identified. IMPRESSION: No mammographic evidence of malignancy. Upper outer posterior right breast ultrasound is negative. Recommend routine mammogram screening. BI-RADS category 1: Negative. The images were reviewed with computer-aided detection. Patient information is entered into the reminder system with a target due date for the next screening mammogram. Mammography is the most sensitive method for finding small breast cancers, but it does not detect them all and is not a substitute for careful clinical examination. A negative mammogram does not negate a clinically suspicious finding and should not result in delay in biopsying a clinically suspicious abnormality. "Our facility is accredited by the [employer] Mammography Program." Electronically signed by: Akash Townsend MD (11/21/2018 9:51 AM) [id number]
== END | disposition home or self-care (01) ==
LOC: KCIC US 08:21
PROVIDERS: ATTEND Family Medicine
DX: N63.11 Unspecified lump in the right breast, upper outer quadrant (principal)
CPT/HCPCS: 76641; 77066

== ENCOUNTER → 2019-04-06 | Outpatient (CLI) | payer OTHER ==
[~2019-04-06] MED LIST changes: +CLON-77 PO; -CLON0.5T11 PO
--- NOTE | 2019-04-06 10:16 | KCIC ---
EXAM: Dual energy x-ray absorptiometry (DEXA). HISTORY: Post menopausal screening. TECHNIQUE: Dual energy x-ray absorptiometry of the lumbar spine and the left hip was performed. T-score of average bone mineral density based was calculated based on standard deviations above or below the expected young adult normal value. Diagnostic definitions were established by the World Health Organization. FINDINGS: The average bone mineral density associated with L1-L4 is 1.069 g/cm^2, corresponding with a T-score of 0.2. The average total bone mineral density associated with the left hip is 0.957 g/cm^2, corresponding with a T-score of 0.1. No comparison examinations are available. Refer to the worksheets for full detail. IMPRESSION: 1. Normal. Average bone mineral density yields a T-score of -1.0 or greater. Fracture risk is low. Electronically signed by: Jose Oshea MD (04/06/2019 10:14 AM) [facility]
== END | disposition home or self-care (01) ==
LOC: KCIC DEXA 08:05
PROVIDERS: ATTEND Family Medicine
DX: Z78.0 Asymptomatic menopausal state (principal)
CPT/HCPCS: 77080

== ENCOUNTER → 2020-01-01 | Outpatient (CLI) | payer OTHER ==
[~2020-01-01] MED LIST changes: -OMEP20CA10 PO; +OMEP20CA16 PO
[2020-01-01 09:06] LABS: BASO # 0.1 x10^3/uL (0.0-0.2); BASO % 1 % (0-3); EOS # 0.2 x10^3/uL (0.0-0.7); EOS % 2 % (0-3); HEMATOCRIT 40.3 % (36.0-47.0); LYMPH # 2.9 x10^3/uL (1.0-4.8); LYMPH % 43 % (24-48); MEAN CORPUSCULAR HEMOGLOBIN 31 pg (25-35); MEAN CORPUSCULAR HGB CONC 35 g/dL (31-37); MEAN CORPUSCULAR VOLUME 90 fL (79-100); MONO # 0.4 x10^3/uL (0.0-1.1); MONO % 7 % (0-9); NEUT # 3.2 x10^3/uL (1.8-7.7); NEUT % 47 % (31-73); PLATELET COUNT 332 x10^3/uL (140-400); RED BLOOD COUNT 4.49 x10^6/uL (3.50-5.40); RED CELL DISTRIBUTION WIDTH 12.7 % (11.5-14.5); WHITE BLOOD COUNT 6.8 x10^3/uL (4.0-11.0)
[2020-01-01 09:21] LABS: ALBUMIN 3.8 g/dL (3.4-5.0); ALBUMIN/GLOBULIN RATIO 0.9 (1.0-1.7); CALCIUM 8.9 mg/dL (8.5-10.1); CREATININE 0.8 mg/dL (0.6-1.0); GFR 73.4; POTASSIUM 3.7 mmol/L (3.5-5.1); TOTAL BILIRUBIN 0.5 mg/dL (0.2-1.0); TOTAL PROTEIN 7.9 g/dL (6.4-8.2)
[2020-01-01 09:22] LABS: CHOLESTEROL/HDL RATIO 4.8
[2020-01-02 02:09] LABS: HEMOGLOBIN A1C 5.7 % (4.8-5.6)
== END | disposition home or self-care (01) ==
LOC: LAB 08:06
PROVIDERS: ATTEND Family Medicine
DX: E78.5 Hyperlipidemia, unspecified (principal); I10 Essential (primary) hypertension; R73.09 Other abnormal glucose
CPT/HCPCS: 36415; 80053; 80061; 83036; 83721; 85025

== ENCOUNTER → 2020-02-15 | Outpatient (CLI) | payer OTHER ==
[~2020-02-15] MED LIST changes: -NADO40TA PO; +NADO40TA2 PO
== END | disposition home or self-care (01) ==
LOC: LAB 15:52
PROVIDERS: ATTEND Internal Medicine Pulmonary Disease
DX: Z20.828 Contact with and (suspected) exposure to other viral communicable diseases (principal)
CPT/HCPCS: U0003-CS

== ENCOUNTER → 2020-04-15 | Outpatient (CLI) | payer OTHER ==
[~2020-04-15] MED LIST changes: +AMLO-186 PO; -AMLO5TAB10 PO
== END ==
LOC: LAB 21:48
PROVIDERS: ATTEND Internal Medicine Pulmonary Disease
DX: R06.02 Shortness of breath (principal); J02.9 Acute pharyngitis, unspecified; R53.81 Other malaise; M79.10 Myalgia, unspecified site; Z20.828 Contact with and (suspected) exposure to other viral communicable diseases
CPT/HCPCS: U0003

== ENCOUNTER 2020-06-27 07:44 | Emergency (ER) | payer OTHER | END 2020-06-27 08:19 | LOC: ER 07:44 | DX: M79.671 Pain in right foot (principal); Z53.21 Procedure and treatment not carried out due to patient leaving prior to being seen by health care provider ==

== ENCOUNTER → 2020-07-01 | Outpatient (CLI) | payer OTHER ==
--- NOTE | 2020-07-01 17:09 | RAD ---
PROCEDURE: XR FOOT_RIGHT 3 VIEWS STUDY DATE: 07/01/2020 CLINICAL INDICATION / HISTORY: Reason: LATERAL RIGHT FOOT PAIN. ALL IMAGES DONE STANDING / Spl. Instr uctions: / History: . TECHNIQUE: AP, lateral and oblique views of the right foot. COMPARISON: None FINDINGS: No fracture or dislocation is identified. The bone density is normal. The joint space width s are maintained, and there are no erosions to suggest an inflammatory arthropathy. No soft tissue ab normality is seen. IMPRESSION: No acute osseous abnormality. Electronically signed by: Ashleigh Baez MD (07/01/2020 5:07 PM) [id number]
== END ==
LOC: RAD 14:28
PROVIDERS: ATTEND Nurse Practitioner Gerontology
DX: M79.671 Pain in right foot (principal)
CPT/HCPCS: 73630

== ENCOUNTER → 2020-10-30 | Outpatient (CLI) | payer OTHER ==
[2020-10-30 09:09] LABS: ALBUMIN 3.8 g/dL (3.4-5.0); ALBUMIN/GLOBULIN RATIO 1.2 (1.0-1.7); CALCIUM 8.5 mg/dL (8.5-10.1); CHOLESTEROL/HDL RATIO 4.7; CREATININE 0.7 mg/dL (0.6-1.0); GFR 85.4; POTASSIUM 4.2 mmol/L (3.5-5.1); TOTAL BILIRUBIN 0.4 mg/dL (0.2-1.0); TOTAL PROTEIN 6.9 g/dL (6.4-8.2)
== END ==
LOC: LAB 08:20
PROVIDERS: ATTEND Family Medicine
DX: E78.5 Hyperlipidemia, unspecified (principal)
CPT/HCPCS: 36415; 80053; 80061

== ENCOUNTER 2021-03-01 17:01 | Emergency (ER) | payer OTHER ==
[~2021-03-01] VITALS: Ht 162.6 cm; Wt 75.0 kg
[2021-03-01 18:19] VITALS: BP 125/80
[2021-03-01] MEDS ORDERED: FAMOTIDINE 20 MG TABLET. PO ONE (18:45)
[2021-03-01] MEDS ORDERED: methylPREDNISolone ACETATE 80 MG/ML VIAL. IM ONE (18:45)
[2021-03-01] MEDS ORDERED: diphenhydrAMINE HCL 25 MG CAPSULE PO ONE (18:45)
[2021-03-01] MEDS ORDERED: PRED-220 PO (18:55)
[2021-03-01] MEDS ORDERED: FAMO-63 PO (18:55)
--- NOTE | 2021-03-01 18:55 | PHYS DOC ---
Past Medical History Past Medical History: Anxiety, Depression, GERD, High Cholesterol, Hypert ension, Migraines, Other Additional Past Medical Histor: GI stricture Past Surgical History: Hysterectomy, Tubal ligation, Other Additional Past Surgical Histo: abd plasty, finger, skin graft Smoking Status: Never Smoker Alcohol Use: Occasionally Drug Use: None General Adult EDM: Chief Complaint: FACE PROBLEM HPI: HPI: Patient is a 60-year-old female presents emergency department complaining of itching and facial swelling after coming in contact with weeds she was cutting this past Tuesday. Patient reports she took Benadryl yesterday with some relief. Patient states she she may need a steroid as this seems to help the last time she had a similar type of outbreak. Patient denies visual disturbances, visual changes, shortness of breath, tongue swelling, throat swelling, problems speaking, drooling, shortness of breath, chest pain, nausea, vomiting or diarrhea. Patient denies headaches. Patient denies recent medication changes. Patient denies other physical complaints or physical concerns. Review of Systems: Review of Systems: 14 body systems of review of systems have been reviewed. See HPI for pertinent positives and negative responses, otherwise all other systems are negative, nonpertinent or noncontributory. Constitutional: Negative except as outlined in HPI above. Skin: Negative except as outlined in HPI above. Eyes: Negative except as outlined in HPI above. HENT: Negative except as outlined in HPI above. Respiratory: Negative except as outlined in HPI above. Cardiovascular: Negative except as outlined in HPI above. GI: Negative except as outlined in HPI above. : Negative except as outlined in HPI above. Musculoskeletal: Negative except as outlined in HPI above. Integument: Negative except as outlined in HPI above. Neurologic: Negative except as outlined in HPI above. Endocrine: Negative except as outlined in HPI above. Lymphatic: Negative except as outlined in HPI above. Psychiatric: Negative except as outlined in HPI above. Heart Score: C/O Chest Pain: No Risk Factors: Risk Factors: DM, Current or recent (<one month) smoker, HTN, HLP, family history of CAD, obesity. Risk Scores: Score 0 - 3: 2.5% MACE over next 6 weeks - Discharge Home Score 4 - 6: 20.3% MACE over next 6 weeks - Admit for Clinical Observation Score 7 - 10: 72.7% MACE over next 6 weeks - Early Invasive Strategies Allergies: Allergies: Allergies Coded Allergies Type Severity Reaction Last Updated Verified sumatriptan Allergy Severe chest pain 10/04/17 Yes tetanus and diphtheria toxoids Allergy Severe fever,cellulitis 10/04/17 Yes cephalexin Allergy Intermediate blisters 01/18/14 Yes Physical Exam: PE: Constitutional: Well developed, well nourished, no acute distress, non-toxic appearance. 60-year-old female in no apparent distress. HENT: Normocephalic, atraumatic. Oropharynx moist, pink, no uvular edema, no peritonsillar edema or swelling, no laryngeal edema. Patient speaking in normal voice tones, no drooling, no trismus, no lymphadenopathy of the head or neck, bilateral TMs within normal limits. See skin examination for further HEENT exam, no lip or tongue swelling, no angioedema. Eyes: Conjunctiva normal, no discharge. See skin examination. Neck: Normal range of motion, no stridor. Cardiovascular: No cyanosis appreciated, distal cap refill less than 2 seconds. Lungs & Thorax: Patient is in no respiratory distress, no audible adventitious lung sounds appreciated. Abdomen: Nontender, no abnormalities noted. Skin: Warm, dry, no erythema, no rash. Red and raised rash to right side forehead at scalp line with streaking and lichenification, mild periorbital edema of the left orbit, mild light pink erythema. Back: No tenderness, no deformities. Extremities: No tenderness, no cyanosis, no clubbing, ROM intact, no edema. Neurologic: Alert and oriented X 3, normal motor function, normal sensory function, no focal deficits noted. Psychologic: Affect normal, judgement normal, mood normal. Current Patient Data: Vital Signs: Vital Signs Date Time Temp Pulse Resp B/P (MAP) Pulse Ox O2 Delivery O2 Flow Rate FiO2 03/01/21 18:19 98.7 84 16 125/80 (95) Room Air 98.7 EKG: EKG: [] Radiology/Procedures: Radiology/Procedures: [] Course & Med Decision Making: Course & Med Decision Making Pertinent Labs and Imaging studies reviewed. (See chart for details) 60-year-old female, vital signs reviewed, presents emergency department ana m rning rash and hives to forehead and face. Patient's explanation of events and physical examination consistent with contact dermatitis. Will order p.o. Benadryl, Pepcid, IM steroid. Will DC home with prescription for p.o. Pepcid and 2-week oral prednisone de-escalating regimen. Strict follow-up with patient's primary care physician Dr. Lorie Fraser, return to ER precautions or concerns. Patient is amenable to ED discharge planning. Discussed with the patient all findings and diagnostic testing as well as the need to follow-up with their primary care provider for further evaluation and treatment or return to the ED if any new or worsening symptoms. Strict return precautions were also discussed at length, the patient voiced understanding and agreement with the discharge planning. The patient was nontoxic in appearance, in no apparent distress, and hemodynamically stable at the time of disposition. [facility] Records Management Disclaimer: [facility] Records Management Disclaimer: This electronic medical record was generated, in whole or in part, using a voice recognition dictation system. Departure Departure Impression: Primary Impression: Contact dermatitis Qualified Codes: L24.7 - Irritant contact dermatitis due to plants, except food Disposition: HOME / SELF CARE / HOMELESS Condition: GOOD Referrals: LORIE FRASER MD (PCP) Patient Instructions: Contact Dermatitis Additional Instructions: You were seen today in the emergency department for an allergic reaction to most likely a plant you came in contact with this past Tuesday. As we discussed at length, I am treating you today in the emergency department with 25 mg Benadryl, 40 mg Pepcid, 80 mg Depo-Medrol IM injection, I am prescribing you Pepcid to take twice a day over the next 2 weeks along with a de-escalating dose of oral prednisone. Please take as directed. Please return immediately to the emergency department for tongue swelling lip swelling shortness of breath, difficulties breathing, worsening symptoms. Follow-up with your primary care physician Dr. Fraser for ongoing management of contact dermatitis. Thank you for visiting our Emergency Department. It was a pleasure taking care of you today in the emergency department and we appreciate you trusting us with your care. If any additional problems come up don't hesitate to return to visit us. Please follow up with your primary care provider so they can plan additional care if needed and know about the problem that you had. If symptoms worsen come back to the Emergency Department. Any concerning symptoms that start such as chest pain, shortness of air, weakness or numbness on one side of the body, running high fevers or any other concerning symptoms return to the ER. Scripts Prednisone (PREDNISONE ) 10 Mg Tablet 10 MG PO DAILY, #42 TAB 0 Refills Take 5 tablets daily for days 1-3, then 4 tablets daily days 4-6, then 3 tablets daily days 7-9, then 2 tablets daily days 10-12, then one tablet daily days 13-15. Prov: SRAVAN MOSER APRN 03/01/21 Famotidine (PEPCID) 20 Mg Tablet 20 MG PO BID for contact dermatitis for 14 Days, #28 TAB 0 Refills Prov: SRAVAN MOSER APRN 03/01/21 SRAVAN MOSER APRN Mar 01, 2021 18:55
== END 2021-03-01 19:10 | disposition home or self-care (01) ==
LOC: ER 17:01
DX: L24.7 Irritant contact dermatitis due to plants, except food (principal); K21.9 Gastro-esophageal reflux disease without esophagitis; E78.00 Pure hypercholesterolemia, unspecified; I10 Essential (primary) hypertension; G43.909 Migraine, unspecified, not intractable, without status migrainosus; F17.200 Nicotine dependence, unspecified, uncomplicated; Z88.1 Allergy status to other antibiotic agents; Z88.8 Allergy status to other drugs, medicaments and biological substances
CPT/HCPCS: 96372; 99283; J1040; Q0163

== ENCOUNTER → 2021-06-01 | Outpatient (CLI) | payer OTHER ==
[~2021-06-01] MED LIST changes: +FAMO-63 PO; +PRED-220 PO
== END ==
LOC: LAB 20:51
PROVIDERS: ATTEND Internal Medicine Pulmonary Disease
DX: U07.1 COVID-19 (principal)
CPT/HCPCS: 87426; U0003; U0005